=== PATIENT | female | born 1960 | race Caucasian/White ===

== ENCOUNTER 2016-10-21 20:24 | Inpatient (IN) | payer MEDICARE, OTHER ==
[~2016-10-21] VITALS: Ht 170.2 cm; Wt 84.9 kg
[2016-10-21] MEDS ORDERED: DUONEB INH ONE ×3 (20:33→21:41)
[2016-10-21] MEDS ORDERED: SODIUM CHLORIDE 0.9% 500 ML IV ONE (22:31)
[2016-10-21] MEDS ORDERED: ACETAMINOPHEN 325 MG TAB ONE (22:31)
[2016-10-21] MEDS ORDERED: CEFTRIAXONE 1 GM VIAL ONE (22:42)
[2016-10-21] MEDS ORDERED: SALINE FLUSH 10 ML FLUSH PRN (23:55)
[2016-10-22 02:15] VITALS: BP_SYST 118; BP_SYST 120; RESP 18; TEMP 98.5
[2016-10-22] MEDS: SALINE FLUSH 10 ML FLUSH SCH ×3 (03:00→20:00)
[2016-10-22] MEDS: AZITHROMYCIN 500 MG in SODIUM CHLORIDE 0.9% 250 ML IV SCH (03:00)
[2016-10-22 03:07] VITALS: Ht 170.2 cm; Wt 84.9 kg
[2016-10-22 03:21] VITALS: RESP 18
[2016-10-22] MEDS ORDERED: DUONEB INH PRN (03:25)
[2016-10-22] MEDS: METHYLPRED SOD SUCC 125 MG/2 ML VIAL IV SCH ×2 (05:13→11:14)
[2016-10-22] MEDS: SODIUM CHLORIDE 0.9% FLUSH BAG 500 ML IV SCH (05:14)
[2016-10-22 07:41] VITALS: BP_SYST 127; RESP 18; TEMP 97.5
[2016-10-22] MEDS: CEFTRIAXONE 1 GM in SODIUM CHLORIDE 0.9% 50 ML IV SCH (08:21)
[2016-10-22] MEDS: ACETAMINOPHEN 325 MG TAB PO PRN ×3 (08:59→21:37)
[2016-10-22 15:55] VITALS: BP_SYST 150; RESP 16; TEMP 98
[2016-10-22] MEDS: KETOROLAC 30 MG/ML VIAL IV SCH ×2 (16:36→23:11)
[2016-10-22] MEDS: DUONEB INH PRN ×2 (19:27→23:34)
[2016-10-22 19:45] VITALS: BP_SYST 136; RESP 20; TEMP 98
[2016-10-22] MEDS: FAMOTIDINE 20 MG TAB PO SCH (20:00)
[2016-10-22 23:00] VITALS: BP_SYST 138; RESP 20; TEMP 97.8
[2016-10-23 04:08] VITALS: BP_SYST 130; RESP 20; TEMP 97.8
[2016-10-23] MEDS: ACETAMINOPHEN 325 MG TAB PO PRN ×2 (04:19→10:53)
[2016-10-23] MEDS: SODIUM CHLORIDE 0.9% FLUSH BAG 500 ML IV SCH (05:07)
[2016-10-23 07:24] VITALS: BP_SYST 132; RESP 18; TEMP 97.9
[2016-10-23] MEDS: SALINE FLUSH 10 ML FLUSH SCH (08:09)
[2016-10-23] MEDS: FAMOTIDINE 20 MG TAB PO SCH (08:10)
[2016-10-23] MEDS: CEFTRIAXONE 1 GM in SODIUM CHLORIDE 0.9% 50 ML IV SCH (08:10)
[2016-10-23] MEDS: KETOROLAC 30 MG/ML VIAL IV SCH ×2 (08:10→15:25)
[2016-10-23] MEDS ORDERED: PREDNISONE 20 MG TAB PO SCH (09:00)
[2016-10-23] MEDS: AZITHROMYCIN 500 MG in SODIUM CHLORIDE 0.9% 250 ML IV SCH (09:22)
[2016-10-23 11:09] VITALS: BP_SYST 141; RESP 16; TEMP 98.2
[2016-10-23 14:34] VITALS: BP_SYST 148; RESP 16; TEMP 98.2
[2016-10-23 14:59] VITALS: BP_SYST 148; RESP 16; TEMP 98.2
== END 2016-10-23 16:22 | disposition home or self-care (01) | DRG 190 ==
LOC: ENRESERVTM → ENRESERVDT → ER 20:24 → EMR 23:54 → 3NT 10-22 01:54 → ENPENDDIS 10-23 09:43 → OBSVTOIN 10-23 09:43
PROVIDERS: ADMIT Family Medicine; ATTEND Family Medicine
DX: J44.0 Chronic obstructive pulmonary disease with (acute) lower respiratory infection (principal); J18.9 Pneumonia, unspecified organism; J45.41 Moderate persistent asthma with (acute) exacerbation; I48.2 Chronic atrial fibrillation; J44.1 Chronic obstructive pulmonary disease with (acute) exacerbation; R00.0 Tachycardia, unspecified; I10 Essential (primary) hypertension; E78.5 Hyperlipidemia, unspecified; G89.4 Chronic pain syndrome; V89.2XXS Person injured in unspecified motor-vehicle accident, traffic, sequela; Z79.51 Long term (current) use of inhaled steroids
CPT/HCPCS: 36415; 71010; 80053; 82553; 83880; 84484; 85025; 85379; 87040; 87278; 87299; 93005; 94640; 94664; 94799; 96361; 96365; 96375; 99219; 99233; 99239